=== PATIENT | male | born 1975 | race Caucasian/White ===

== ENCOUNTER 2016-09-29 13:52 | Emergency (ER) | payer OTHER ==
[2016-09-29 14:07] VITALS: TEMP 98; BMI 26.9
[2016-09-29] MEDS ORDERED: ACETAMINOPHEN 325 MG TABLET (FP) PO ONE (14:52)
--- NOTE | 2016-09-29 15:04 | PDOC ---
History of Present Illness <Phi Alonzo - Last Filed: 09/29/16 16:05> - General History Source: Patient Exam Limitations: No Limitations - History of Present Illness Initial Comments: 09/29/16 14:59 Patient is a 40 year old with hx of alcohol abuse who presents to ED requesting to be placed into a detox program. He also describes some vague abdominal pain that he states comes and goes. 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 He states he had a kidney stone in his early 30's. He drinks 1 bottle of vodka every 2-3 days. He has been been drinking like this for about 10 years. <Samuel Bose - Last Filed: 09/29/16 16:23> - General Chief Complaint: Pain Stated Complaint: DETOX/abd pain Time Seen by Provider: 09/29/16 14:29 Past History <Phi Alonzo - Last Filed: 09/29/16 16:05> - Travel Traveled outside of the country in the last 30 days: No Close contact w/someone who was outside of country & ill: No - Past Medical History Other medical history: alcoholism - Surgical History Orthopedic Surgery: Yes (knee sx) - Psycho/Social/Smoking Cessation Hx Anxiety: No Suicidal Ideation: No Smoking History: Current every day smoker Have you smoked in the past 12 months: No Number of Cigarettes Smoked Daily: 20 Information on smoking cessation initiated: No Hx Alcohol Use: Yes (binges) Drug/Substance Use Hx: No Substance Use Type: Alcohol <Samuel Bose - Last Filed: 09/29/16 16:23> - Past Medical History Allergies/Adverse Reactions: Allergies Allergy/AdvReac Type Severity Reaction Status Date / Time No Known Allergies Allergy Verified 09/29/16 14:06 Home Medications: Ambulatory Orders NK [No Known Home Medication] 09/29/16 Review of Systems - Review of Systems Able to Perform ROS?: Yes Is the patient limited Slovak proficient: No All Other Systems: Reviewed and Negative <Samuel Bose - Last Filed: 09/29/16 16:23> *Physical Exam - Vital Signs Last Vital Signs Temp Pulse Resp BP Pulse Ox 98.0 F 102 H 18 167/99 96 09/29/16 14:00 09/29/16 16:00 09/29/16 16:00 09/29/16 16:00 09/29/16 16:00 <Phi Alonzo - Last Filed: 09/29/16 16:05> - Vital Signs Last Vital Signs Temp Pulse Resp BP Pulse Ox 98.0 F 114 H 18 159/106 100 09/29/16 14:00 09/29/16 14:00 09/29/16 14:00 09/29/16 14:00 09/29/16 14:00 - Physical Exam General Appearance: Yes: Nourished, Appropriately Dressed HEENT: positive: EOMI, BEVERLEY, Normal ENT Inspection Neck: positive: Trachea midline, Supple Respiratory/Chest: positive: Lungs Clear, Normal Breath Sounds Cardiovascular: positive: Regular Rhythm, Regular Rate, S1, S2 Gastrointestinal/Abdominal: positive: Normal Bowel Sounds, Soft Male Genitalia: positive: normal genitalia Musculoskeletal: positive: Normal Inspection, Other (mild musculoskeletal pain superior to left groin) Extremity: positive: Normal Inspection Integumentary: positive: Normal Color, Dry, Warm Neurologic: positive: Fully Oriented, Alert, Motor Strength 5/5, Other (mild tremors noted bilateral hands) <Samuel Bose - Last Filed: 09/29/16 16:23> ED Treatment Course - Medications Given in the ED: ED Medications Discontinued Medications Generic Name Dose Route Start Last Admin Trade Name Herbert PRN Reason Stop Dose Admin Acetaminophen 650 mg 09/29/16 14:52 09/29/16 15:30 Tylenol - PO 09/29/16 14:53 650 mg ONCE ONE Administration Chlordiazepoxide HCl 50 mg 09/29/16 15:08 09/29/16 15:33 Librium - PO 09/29/16 15:09 50 mg ONCE ONE Administration <Phi Alonzo - Last Filed: 09/29/16 16:05> - ADDITIONAL ORDERS Additional order review: 09/29/16 15:04 Patient was given Tylenol 650mg for pain relief and 50mg dose of Librium to prevent withdrawal symptoms. Given his history of kidney stones and left groin tenderness, UA was ordered. If UA returns normal, will DC to [facility] for detox. States his mother is in the waiting room and will accompany him there. 09/29/16 16:22 UA has 2+ proteinuria but no signs of hematuria. Patient instructed to f/u with PCP one done with detox. Stable at discharge to [facility]. <Samuel Bose - Last Filed: 09/29/16 16:23> *DC/Admit/Observation/Transfer - Discharge Dispostion Admit: No <Phi Alonzo - Last Filed: 09/29/16 16:05> - Discharge Dispostion Admit: No <Samuel Bose - Last Filed: 09/29/16 16:23> Diagnosis at time of Disposition: Alcohol abuse, Proteinuria Thigh pain, musculoskeletal Qualifiers: Laterality: left Qualified Code(s): M79.605 - Pain in left leg - Discharge Dispostion Disposition: HOME Condition at time of disposition: Stable - Patient Instructions Printed Discharge Instructions: DI for Alcohol Abuse Additional Instructions: [place] [address] for evaluation of alcohol detox. Visit a doctor regarding some protein found in your urine.
[2016-09-29] MEDS ORDERED: chlordiazePOXIDE HCL 25 MG CAPSULE PO ONE (15:08)
--- NOTE | 2016-09-29 15:11 | PDOC ---
[id number] have performed the following: I have examined & evaluated the patient, The case was reviewed & discussed with the resident, I agree w/resident 's findings & plan - HPI HPI: 10/04/16 08:46 see mdm - Physicial Exam PE: 10/04/16 08:46 see mdm - Medical Decision Making 09/29/16 15:04 40y F hx of etoh abuse presents for detox. The pt states he has been drinking recently and wants to detox. Pt deines any complaints, in triage the pt did mention some abdominal pain, but states that is not why he came to the ED today - he states his abd pain was worked up in the ED at [facility] and he had seen GI and was referred to PMD. Pt states his pain iin the abdomen has resolved, but occasionally has pain in the left thigh - it is worse when he is walking up stairs, improves at rest. 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 pt denies seen any masses/bumps - there are no associated fever/chills, n/v, back pain, numbness/tingling/weakness. on exam pt has mild tenderness in the L medial thigh, pain reproducible when he flexes his L hip. Suspect MSK pain - will ck ua to r/o hematuria. will give tylenol for pain. Pts vitals noted for mild tachycardia - and pt also noted to have mild tremors and tongue fasiculations - suspect pt is in mild withdrawal - will give the patient some librium will also ck urine to r/o kidney stone/heamturia. 09/29/16 16:24 vitals normal urine shows 2+ proteinuria - will hvae pt fu with his PMD for repeat urine. will d/c so patient can get detox at [facility]. n osigns of withdrawal.
[2016-09-29] MEDS ORDERED: ACETAMINOPHEN 325 MG TABLET (FP) ONE (15:25)
[2016-09-29] MEDS ORDERED: chlordiazePOXIDE HCL 25 MG CAPSULE ONE (15:25)
[2016-09-29 16:01] VITALS: BP 167/99; PULSE 102
[2016-09-29 16:14] LABS: URINE APPEARANCE CLEAR; URINE BLOOD NEGATIVE (NEGATIVE); URINE COLOR DKYELLOW; URINE GLUCOSE (UA) NEGATIVE (NEGATIVE); URINE KETONE TRACE (NEGATIVE); URINE LEUK ESTERASE NEGATIVE (NEGATIVE); URINE NITRITE NEGATIVE (NEGATIVE); URINE UROBILINOGEN 2.0 E.U/dl E.U./dl (0.2-1.0)
[2016-09-29 16:17] LABS: URINE PROTEIN 2+ (NEGATIVE)
[2016-09-29 16:19] LABS: URINE BACTERIA RARE /hpf (NONE SEEN); URINE HYALINE CAST 7 /lpf; URINE MUCUS MANY; URINE RBC 10 /hpf (0-3); URINE WBC 2 /hpf (3-5)
--- NOTE | 2016-09-30 21:27 | DS ---
[id number] Additional Comments: 40 YEARS OLD MALE CAME TO [facility] FOR ALCOHOL DETOX PER HIS "BROTHER" REQUESTED, INSISTED TO LEAVE THE UNIT AND REFUSED TO WAIT FACE TO FACE WITH THE PROVIDER Pertinent Past History: alcohol induced mood disorder - Physical Exam Results Vital Signs: Vital Signs Temperature 98.0 F 09/29/16 14:00 Pulse Rate 102 H 09/29/16 16:00 Respiratory Rate 18 09/29/16 16:00 Blood Pressure 167/99 09/29/16 16:00 O2 Sat by Pulse Oximetry (%) 96 09/29/16 16:00 Pertinent Admission Physical Exam Findings: withdrawal sx Laboratory Last Values Urine Color Dkyellow 09/29/16 16:00 Urine Appearance Clear 09/29/16 16:00 Urine pH 7.0 (5.0-8.0) 09/29/16 16:00 Ur Specific [place] 1.027 (1.001-1.035) 09/29/16 16:00 Urine Protein 2+ (NEGATIVE) H 09/29/16 16:00 Urine Glucose (UA) Negative (NEGATIVE) 09/29/16 16:00 Urine Ketones Trace (NEGATIVE) H 09/29/16 16:00 Urine Blood Negative (NEGATIVE) 09/29/16 16:00 Urine Nitrite Negative (NEGATIVE) 09/29/16 16:00 Urine Bilirubin 2.0 (NEGATIVE) 09/29/16 16:00 Urine Urobilinogen 2.0 e.u/dl E.U./dl (0.2-1.0) 09/29/16 16:00 Ur Leukocyte Esterase Negative (NEGATIVE) 09/29/16 16:00 Urine RBC 10 /hpf (0-3) 09/29/16 16:00 Urine WBC 2 /hpf (3-5) 09/29/16 16:00 Urine Bacteria Rare /hpf (NONE SEEN) 09/29/16 16:00 Hyaline Casts 7 /lpf 09/29/16 16:00 Urine Mucus Many 09/29/16 16:00 lab noted - Treatment Hospital Course: Detox Protocol Followed, Responded well - Medication Discharge Medications: Ambulatory Orders NK [No Known Home Medication] 09/29/16 - Diagnosis (1) Alcohol dependence with uncomplicated withdrawal Status: Acute - AMA Did Patient Leave Against Medical Advice: Yes
== END 2016-09-29 16:28 | disposition other institution (70) ==
LOC: JER 13:52
DX: F10.10 Alcohol abuse, uncomplicated (principal)
CPT/HCPCS: 81003; 81015; 99282-25

== ENCOUNTER 2016-09-29 19:44 | Inpatient (IN) | payer OTHER ==
[2016-09-29 21:02] VITALS: BMI 26.6
[2016-09-29] MEDS ORDERED: chlordiazePOXIDE HCL 25 MG CAPSULE PO SCH (23:00)
[2016-09-29] MEDS ORDERED: hydrOXYzine PAMOATE 50 MG CAPSULE (FP) PO PRN (23:01)
[2016-09-29] MEDS ORDERED: MAG HYDROX/AL HYDROX/SIMETH 30 ML UNIT-DOSE CUP PO PRN (23:01)
[2016-09-29] MEDS ORDERED: LOPERAMIDE HCL 2 MG CAPSULE PO PRN (23:01)
[2016-09-29] MEDS ORDERED: chlordiazePOXIDE HCL 25 MG CAPSULE PO ONE (23:01)
[2016-09-29] MEDS ORDERED: P-EPHED 60MG/TRIPROLIDI 2.5MG TABLET PO PRN (23:01)
[2016-09-29] MEDS ORDERED: ACETAMINOPHEN 325 MG TABLET (FP) PO PRN (23:01)
[2016-09-29] MEDS ORDERED: diphenhydrAMINE HCL 50 MG CAPSULE PO PRN (23:01)
[2016-09-29] MEDS ORDERED: chlordiazePOXIDE HCL 25 MG CAPSULE PO PRN (23:01)
[2016-09-29] MEDS ORDERED: IBUPROFEN 400 MG TABLET (FP) PO PRN (23:01)
[2016-09-29] MEDS ORDERED: MENTHOL/PHENOL 1 EACH UD MM PRN (23:01)
[2016-09-29] MEDS ORDERED: MAGNESIUM HYDROX 2400MG/30ML ORAL SUSPENSION 30 ML CUP PO PRN (23:01)
[2016-09-29] MEDS ORDERED: MAGNESIUM CITRATE 300 ML BOTTLE PO PRN (23:01)
[2016-09-29] MEDS ORDERED: guaiFENesin/D-METHORPHAN HB 10 ML UNIT-DOSE CUPS PO PRN (23:01)
--- NOTE | 2016-09-29 23:06 | HP ---
CIWA Score - CIWA Score Nausea/Vomitin-Mild Nausea/No Vomiting Muscle Tremors: 2 Anxiety: 4-Mod. Anxious/Guarded Agitation: 4-Moderately Restless Paroxysmal Sweats: 1-Minimal Palms Moist Orientation: 0-Oriented Tacttile Disturbances: 0-None Auditory Disturbances: 0-None Visual Disturbances: 0-None Headache: 2-Mild CIWA-Ar Total Score: 14 Admission ROS BHS - HPI Chief Complaint: WITHDRAWAL SYMPTOMS Allergies/Adverse Reactions: Allergies Allergy/AdvReac Type Severity Reaction Status Date / Time No Known Allergies Allergy Verified 09/29/16 14:06 History of Present Illness: 40 Y.O. MAN WITH A HISTORY OF ALCOHOL DEPENDENCE IS SEEKING DETOX. HE HAS NEVER BEEN TO DETOX. Exam Limitations: No Limitations - Ebola screening Have you traveled outside of the country in the last 21 days: No (N) Have you had contact with anyone from an Ebola affected area: No Have you been sick,other than usual withdrawal symptoms: No Do you have a fever: No - Review of Systems Constitutional: Chills, Malaise, Night Sweats EENT: reports: No Symptoms Reported Respiratory: reports: Cough, Productive cough Cardiac: reports: No Symptoms Reported GI: reports: No Symptoms Reported : reports: Frequency Musculoskeletal: reports: Back Pain Integumentary: reports: No Symptoms Reported Neuro: reports: Paresthesia (LEFT LEG) Endocrine: reports: No Symptoms Reported Hematology: reports: No Symptoms Reported Psychiatric: reports: Judgement Intact, Mood/Affect Appropiate, Orientated x3, Depressed Other Systems: Reviewed and Negative Patient History - Patient Medical History Hx Anemia: No Hx Asthma: No Hx Cancer: No Hx Cardiac Disorders: No Hx Congestive Heart Failure: No Hx Hypertension: Yes Hx Hypercholesterolemia: No Hx Pacemaker: No HX Cerebrovascular Accident: No Hx Seizures: No Hx Dementia: No Hx Diabetes: No Hx Gastrointestinal Disorders: Yes (DYSPEPSIA ) Hx Liver Disease: No Hx Genitourinary Disorders: No Hx Sexually Transmitted Disorders: No Hx Renal Disease (ESRD): No Hx Thyroid Disease: No Hx Human Immunodeficiency Virus (HIV): No Hx Hepatitis C: No Hx Depression: Yes Hx Suicide Attempt: No Hx Bipolar Disorder: No Hx Schizophrenia: No - Patient Surgical History Past Surgical History: Yes Hx Orthopedic Surgery: Yes (knee sx) - PPD History Previous Implant?: Yes Documented Results: Negative w/o proof PPD to be Administered?: Yes - Reproductive History Patient is a Female of Child Bearing Age (11 -55 yrs old): No - Smoking Cessation Smoking history: Current every day smoker Have you smoked in the past 12 months: Yes Aproximately how many cigarettes per day: 20 Hx Chewing Tobacco Use: No Initiated information on smoking cessation: Yes 'Breaking Loose' booklet given: 09/29/16 - Substance & Tx. History Hx Alcohol Use: Yes Hx Substance Use: No Substance Use Type: Alcohol Hx Substance Use Treatment: No - Substances Abused Alcohol Route: Oral Frequency: 3-6 times per week Amount used: 1/2 BOTTLE OF VODKA - 2-3 BEERS Age of first use: 19 Date of Last Use: 09/28/16 Family Disease History - Family Disease History Family Disease History: Diabetes: Mother, Brother, Respiratory: Father Admission Physical Exam [facility] - Vital Signs Vital Signs: Vital Signs - 24 hr 09/29/16 20:59 Temperature 97.4 F L Pulse Rate 98 H Respiratory 20 Rate Blood Pressure 162/100 - Physical General Appearance: Yes: Irritable, Anxious HEENTM: Yes: Hearing grossly Normal, Normal ENT Inspection, Normocephalic, Normal Voice, Nasal Congestion Respiratory: Yes: Chest Non-Tender, Lungs Clear, Normal Breath Sounds, No Respiratory Distress, No Accessory Muscle Use Neck: Yes: No masses,lesions,Nodules, Trachea in good position Breast: Yes: Breast Exam Deferred Cardiology: Yes: Regular Rhythm, Regular Rate, S1, S2 Abdominal: Yes: Normal Bowel Sounds, Non Tender, Flat, Soft Genitourinary: Yes: Frequency Back: Yes: Normal Inspection Musculoskeletal: Yes: full range of Motion, Gait Steady Extremities: Yes: Normal Inspection, Normal Range of Motion, Non-Tender Neurological: Yes: Fully Oriented, Alert, Normal Mood/Affect, Normal Response Integumentary: Yes: Normal Color, Dry, Warm Lymphatic: Yes: Within Normal Limits - Diagnostic (1) Alcohol dependence with uncomplicated withdrawal Current Visit: Yes Status: Chronic Cleared for Admission [facility] - Detox or Rehab [facility] Level of Care: Medically Managed Detox Regimen/Protocol: Librium [facility] Breath Alcohol Content Breath Alcohol Content: 0 Urine Drug Screen - Results Drug Screen Negative: No Urine Drug Screen Results: THC-Marijuana, BZO-Benzodiazepines
[2016-09-30] MEDS ORDERED: chlordiazePOXIDE HCL 25 MG CAPSULE PO PRN (01:30)
[2016-09-30] MEDS ORDERED: chlordiazePOXIDE HCL 25 MG CAPSULE PO ONE (01:30)
[2016-09-30] MEDS: chlordiazePOXIDE HCL 25 MG CAPSULE PO SCH ×3 (05:47→17:19)
--- NOTE | 2016-09-30 09:55 | PN ---
[facility] CIWA - CIWA Score Nausea/Vomitin-No Nausea/No Vomiting Muscle Tremors: 4-Moderate,w/Arms Extend Anxiety: 4-Mod. Anxious/Guarded Agitation: 4-Moderately Restless Paroxysmal Sweats: 1-Minimal Palms Moist Orientation: 0-Oriented Tacttile Disturbances: 3-Moderate Itch/Numb/Burn Auditory Disturbances: 0-None Visual Disturbances: 0-None Headache: 0-None Present CIWA-Ar Total Score: 16 BHS Progress Note (SOAP) Subjective: ANXIETY,TREMORS,FATIGUE,SWEATS. Objective: 09/30/16 09:54 Vital Signs Temperature 98.4 F 09/30/16 06:23 Pulse Rate 87 09/30/16 07:41 Respiratory Rate 18 09/30/16 06:23 Blood Pressure 151/90 09/30/16 07:41 O2 Sat by Pulse Oximetry (%) LABS PENDING Assessment: 09/30/16 09:55 WITHDRAWAL SX Plan: CONTINUE DETOX
[2016-09-30] MEDS ORDERED: NICOTINE 21 MG/24 HOURS TOPICAL PATCH TD SCH (10:00)
[2016-09-30] MEDS ORDERED: PRENATAL VITAMINS W/ FOLIC ACID TABLET (FP) PO SCH (10:00)
[2016-09-30 10:30] LABS: MCH 35.1 pg (25.7-33.7); MCHC 34.4 g/dl (32.0-35.9); MEAN CELL VOLUME 102.1 fl (80-96); MEAN PLT VOLUME 8.1 fl (7.5-11.1); PLATELET COUNT 235 K/MM3 (134-434); RDW 13.2 % (11.9-15.9); WHITE BLOOD COUNT 8.4 K/mm3 (4.0-10.0)
[2016-09-30 10:52] LABS: ALBUMIN 3.9 g/dl (3.4-5.0); ALK PHOS 66 U/L (45-117); ANION GAP 9 (8-16); BILIRUBIN,TOTAL 2.1 mg/dL (0.2-1.0); CALCIUM 8.9 mg/dL (8.5-10.1); CO2 28 mmol/L (21-32); CREATININE 0.8 mg/dL (0.7-1.3); GLUCOSE,RANDOM 78 mg/dL (74-106); SGOT/AST 28 U/L (15-37); SGPT/ALT 36 U/L (12-78); TOT PROT 6.6 g/dl (6.4-8.2)
--- NOTE | 2016-09-30 11:51 | EKG ---
Test Reason : Blood Pressure : / mmHG Vent. Rate : 079 BPM Atrial Rate : 079 BPM P-R Int : 148 ms QRS Dur : 090 ms QT Int : 384 ms P-R-T Axes : 024 049 059 degrees QTc Int : 440 ms NORMAL SINUS RHYTHM NORMAL ECG NO PREVIOUS ECGS AVAILABLE Confirmed by NILSA LAGOS, RELL ([id number]) on 09/30/2016 11:50:55 AM Referred By: Confirmed By:RELL ASH MD
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
[2016-09-30] MEDS: NICOTINE POLACRILEX 2 MG GUM BUC PRN ×2 (13:15→17:37)
[2016-09-30] MEDS ORDERED: cloNIDine HCL 0.1 MG TABLET PO ONE (15:58)
[2016-09-30 17:32] VITALS: BP 160/94; PULSE 87; TEMP 97.7
--- NOTE | 2016-09-30 21:58 | DS ---
[facility] Detox Discharge Summary Admission Date: 09/29/16 Discharge Date: 09/30/16 - History Present History: Alcohol Dependence Additional Comments: 40 years old male came to [facility] for alcohol detox as per family member requested, as per nursing that the patient made many phone calls and asking to make more phone calls, refused treatment provided patient refused to wait face to face with the provider - Physical Exam Results Vital Signs: Vital Signs Temperature 97.7 F 09/30/16 17:31 Pulse Rate 87 09/30/16 17:31 Respiratory Rate 19 09/30/16 17:31 Blood Pressure 160/94 09/30/16 17:31 O2 Sat by Pulse Oximetry (%) Pertinent Admission Physical Exam Findings: withdrawal sx Laboratory Last Values WBC 8.4 K/mm3 (4.0-10.0) 09/30/16 07:00 RBC 4.29 M/mm3 (4.00-5.60) 09/30/16 07:00 Hgb 15.0 GM/dL (11.7-16.9) 09/30/16 07:00 Hct 43.8 % (35.4-49) 09/30/16 07:00 MCV 102.1 fl (80-96) H 09/30/16 07:00 MCHC 34.4 g/dl (32.0-35.9) 09/30/16 07:00 RDW 13.2 % (11.9-15.9) 09/30/16 07:00 Plt Count 235 K/MM3 (134-434) 09/30/16 07:00 MPV 8.1 fl (7.5-11.1) 09/30/16 07:00 Sodium 139 mmol/L (136-145) 09/30/16 07:00 Potassium 3.5 mmol/L (3.5-5.1) 09/30/16 07:00 Chloride 102 mmol/L (98-107) 09/30/16 07:00 Carbon Dioxide 28 mmol/L (21-32) 09/30/16 07:00 Anion Gap 9 (8-16) 09/30/16 07:00 BUN 9 mg/dL (7-18) 09/30/16 07:00 Creatinine 0.8 mg/dL (0.7-1.3) 09/30/16 07:00 Creat Clearance w eGFR > 60 (>60) 09/30/16 07:00 Random Glucose 78 mg/dL (74-106) 09/30/16 07:00 Calcium 8.9 mg/dL (8.5-10.1) 09/30/16 07:00 Total Bilirubin 2.1 mg/dL (0.2-1.0) H 09/30/16 07:00 AST 28 U/L (15-37) 09/30/16 07:00 ALT 36 U/L (12-78) 09/30/16 07:00 Alkaline Phosphatase 66 U/L (45-117) 09/30/16 07:00 Total Protein 6.6 g/dl (6.4-8.2) 09/30/16 07:00 Albumin 3.9 g/dl (3.4-5.0) 09/30/16 07:00 RPR Titer Nonreactive (NONREACTIVE) 09/30/16 07:00 lab noted - Treatment Hospital Course: Detox Protocol Followed, Responded well - Medication Discharge Medications: Ambulatory Orders NK [No Known Home Medication] 09/29/16 - Diagnosis (1) Alcohol dependence with uncomplicated withdrawal Status: Acute - AMA Did Patient Leave Against Medical Advice: Yes
[2016-09-30] MEDS ORDERED: THIAMINE HCL 100 MG TABLET (FP) PO SCH (22:00)
[2016-09-30] MEDS ORDERED: chlordiazePOXIDE HCL 25 MG CAPSULE PO SCH (23:00)
[2016-10-01] MEDS ORDERED: chlordiazePOXIDE HCL 25 MG CAPSULE PO SCH (05:00)
[2016-10-01] MEDS ORDERED: chlordiazePOXIDE 5 MG CAPSULE PO SCH (23:00)
[2016-10-02] MEDS ORDERED: chlordiazePOXIDE 5 MG CAPSULE PO SCH (05:00)
[2016-10-02] MEDS ORDERED: chlordiazePOXIDE HCL 10 MG CAPSULE PO SCH (23:00)
[2016-10-03] MEDS ORDERED: chlordiazePOXIDE HCL 10 MG CAPSULE PO SCH (05:00)
== END 2016-09-30 20:35 | disposition left against medical advice (07) | DRG 749 ==
LOC: YASAS 19:44 → Y3N 23:34
PROVIDERS: ADMIT Internal Medicine; ATTEND Internal Medicine
PROC: HZ2ZZZZ Detoxification Services for Substance Abuse Treatment (ICD-10-PCS; principal; 2016-09-29)
DX: F10.230 Alcohol dependence with withdrawal, uncomplicated (principal); F17.210 Nicotine dependence, cigarettes, uncomplicated; F39 Unspecified mood [affective] disorder
CPT/HCPCS: 36415; 80053; 85027; 86593; 93005; 93010